=== PATIENT | female | born 1945 | race African-American/Black ===

== ENCOUNTER 2020-11-07 16:52 | Inpatient (IN) | payer MEDICARE ==
[~2020-11-07] VITALS: Ht 152.4 cm; Wt 49.4 kg
--- NOTE | 2020-11-07 17:02 | PHYS DOC ---
General Adult EDM: Chief Complaint: AMS HPI: HPI: Possibly 89-year-old female presents via EMS after trying to get into a daycare center and then sitting down in someone's car. The patient seems to know her name, but does not remember her birthday. She does not seem to be aware of much else. She knows that she has children but does not remmember their names. She denies any pain. She has no complaints. No further history is available. (RYLAN DAVIS DO) Review of Systems: Review of Systems: Constitutional: Denies fever or chills Eyes: Denies change in visual acuity HENT: Denies nasal congestion or sore throat Respiratory: Denies cough or shortness of breath Cardiovascular: Denies chest pain or edema GI: Denies abdominal pain, nausea, vomiting, bloody stools or diarrhea Musculoskeletal: Denies back pain or joint pain Integument: Denies rash Neurologic: Denies headache, focal weakness or sensory changes Psychiatric: Dementia (RYLAN DAVIS DO) Physical Exam: PE: Constitutional: Well developed, well nourished, no acute distress, non-toxic appearance. [] HENT: Normocephalic, atraumatic, bilateral external ears normal, oropharynx moist, no oral exudates, nose normal. [] Eyes: PERRLA, EOMI, conjunctiva normal, no discharge. [] Neck: Normal range of motion, no tenderness, supple, no stridor. [] Cardiovascular:Heart rate 130, regular rhythm, no murmur [] Lungs & Thorax: Bilateral breath sounds clear to auscultation [] Abdomen: Bowel sounds normal, soft, no tenderness, no masses, no pulsatile masses. [] Skin: Warm, dry, no erythema, no rash. [] Back: No tenderness, no CVA tenderness. [] Extremities: No tenderness, no cyanosis, no clubbing, ROM intact, no edema. [] Neurologic: Confused, alert to self only, normal motor function, normal sensory function, no focal deficits noted. [] Psychologic: Affect normal. [] (RYLAN DAVIS DO) EKG: EKG: Sinus rhythm, rate 96, normal axis, no ST elevation or depression. [] (RYLAN DAVIS DO) Radiology/Procedures: Radiology/Procedures: [] Impressions: XR CHEST 1V History: Reason: AMS / Spl. Instructions: / History: Comparison: None. Findings: No consolidation or pleural effusion. Normal heart size. No pneumothorax. Impression: 1. No acute cardiopulmonary process. Electronically signed by: Gregory Valiente DO (11/07/2020 5:32 PM) AILEENJOSEFA DICTATED AND SIGNED BY: GREGORY VALIENTE DO DATE: 11/07/201731 CC: RYLAN DAVIS DO ~MTH0 0 (RYLAN DAVIS DO) Radiology/Procedures: [address] [address] IMAGING REPORT Signed PATIENT: EDOUARD DOBBINS ACCOUNT: [id number] : 02/12/1931 LOCATION: ER AGE: 89 SEX: F EXAM STATUS: PRE ER ORD. PHYSICIAN: RYLAN DAVIS DO REASON: AMS PROCEDURE: CHEST AP ONLY XR CHEST 1V History: Reason: AMS / Spl. Instructions: / History: Comparison: None. Findings: No consolidation or pleural effusion. Normal heart size. No pneumothorax. Impression: 1. No acute cardiopulmonary process. Electronically signed by: Gregory Valiente DO (11/07/2020 5:32 PM) AILEENJOSEFA DICTATED AND SIGNED BY: GREGORY VALIENTE DO DATE: 11/07/201731 CC: RYLAN DAVIS DO ~MTH0 (SHARON CAMARGO MD) Heart Score: C/O Chest Pain: N/A Risk Factors: Risk Factors: DM, Current or recent (<one month) smoker, HTN, HLP, family history of CAD, obesity. Risk Scores: Score 0 - 3: 2.5% MACE over next 6 weeks - Discharge Home Score 4 - 6: 20.3% MACE over next 6 weeks - Admit for Clinical Observation Score 7 - 10: 72.7% MACE over next 6 weeks - Early Invasive Strategies (RYLAN DAVIS DO) Course & Med Decision Making: Course & Med Decision Making Pertinent Labs and Imaging studies reviewed. (See chart for details) The patient initially had a heart rate greater than 110. We are giving her a liter normal saline. EKG heart rate 96. No other significant acute findings. Her chest x-ray is negative for acute findings. The rest of the patient's work- up is pending. I am still not certain who the patient is. I am signing the patient out to Dr. Camargo at 1800. [] (RYLAN DAVIS DO) Course & Med Decision Making Police arrived and took pictures of pt. for posting on new out lets in attempt to identify patient. No recent police reports of missing persons as yet. Mrs. Ayala who works with local office of [employer] does not recognize patient. Nursing shift lab technician's do not recall this patient. The patient ate dinner and slept through most of the night. As of shift change ago 600 hours no one has come forward to report her missing. Pt. remains in no distress. Appears pt may need to be admitted if no one comes forward after the morning news. Pt. endorsed to at shift change 0600Hrs. (SHARON CAMARGO MD) Course & Med Decision Making Concern for 89-year-old female who was found wandering outside or in a daycare and was sitting in someone else's vehicle. Patient is alert to her name but not place, date, year, month, cannot recall her home address. Placement have notified. Patient has been observed in the emergency department for 14.5 hours with no change in mental status, dementia is highly unlikely. Please investigation still pending with no family contacts. Will admit for further medical management and social work consultation. (KOLE RAMESH DO) Dragon Disclaimer: Dragon Disclaimer: This electronic medical record was generated, in whole or in part, using a voice recognition dictation system. (RYLAN DAVIS DO) Departure Departure: Impression: Primary Impression: AMS (altered mental status) Additional Impression: Confusion Disposition: ADMITTED INPATIENT Admitting Physician: Anthony Cunha (KOLE RAMESH DO) Condition: STABLE RYLAN DAVIS DO Nov 07, 2020 17:01 SHARON CAMARGO MD Nov 08, 2020 01:28 KOLE RAMESH DO Nov 08, 2020 07:21
[2020-11-07] MEDS ORDERED: IV NORMAL SALINE 1,000ML 1,000 ML IV ONE (17:15)
[2020-11-07 17:32] LABS: BASO % 1 % (0-3); EOS # 0.1 x10^3/uL (0.0-0.7); EOS % 1 % (0-3); HEMATOCRIT 40.9 % (36.0-47.0); HEMOGLOBIN 13.6 g/dL (12.0-15.5); LYMPH # 1.3 x10^3/uL (1.0-4.8); LYMPH % 24 % (24-48); MEAN CORPUSCULAR HEMOGLOBIN 29 pg (25-35); MEAN CORPUSCULAR HGB CONC 33 g/dL (31-37); MEAN CORPUSCULAR VOLUME 87 fL (79-100); MONO # 0.4 x10^3/uL (0.0-1.1); MONO % 8 % (0-9); NEUT # 3.6 x10^3uL (1.8-7.7); NEUT % 67 % (31-73); PLATELET COUNT 239 x10^3/uL (140-400); RED BLOOD COUNT 4.69 x10^6/uL (3.50-5.40); RED CELL DISTRIBUTION WIDTH 15.4 % (11.5-14.5); WHITE BLOOD COUNT 5.4 x10^3/uL (4.0-11.0)
--- NOTE | 2020-11-07 17:34 | RAD ---
XR CHEST 1V History: Reason: AMS / Spl. Instructions: / History: Comparison: None. Findings: No consolidation or pleural effusion. Normal heart size. No pneumothorax. Impression: 1. No acute cardiopulmonary process. Electronically signed by: Gregory Valiente DO (11/07/2020 5:32 PM) [facility] [place]
[2020-11-07 17:38] LABS: CALCIUM 9.9 mg/dL (8.5-10.1); GFR 52.3; POTASSIUM 3.8 mmol/L (3.5-5.1)
[2020-11-07 17:45] LABS: ALBUMIN 3.6 g/dL (3.4-5.0); ALBUMIN/GLOBULIN RATIO 0.9 (1.0-1.7); TOTAL BILIRUBIN 0.2 mg/dL (0.2-1.0); TOTAL PROTEIN 7.6 g/dL (6.4-8.2)
--- NOTE | 2020-11-07 17:48 | EKG ---
[address] [address] Test Date: 2020-11-07 Test Time: 17:29:41 Pat Name: EDOUARD DOBBINS Department: Room: Gender: F Customer Account Manager: SEBASTIEN : 1931-02-12 Requested By: RYLAN DAVIS Order Number: [id number] Reading MD: Measurements Intervals [place] Rate: 96 P: 115 MS: 184 QRS: 137 QRSD: 84 T: 95 QT: 352 QTc: 451 Interpretive Statements SINUS RHYTHM ABNORMAL RIGHT AXIS DEVIATION QRS(T) CONTOUR ABNORMALITY CONSISTENT WITH HIGH LATERAL INFARCT PROBABLY OLD ABNORMAL ECG RI6.02 No previous ECG available for comparison
[2020-11-07 22:05] LABS: BILIRUBIN,URINE NEG (NEG); CLARITY,URINE CLEAR; COLOR,URINE YELLOW; GLUCOSE,URINE NEG (NEG)
[2020-11-07 22:06] LABS: BACTERIA,URINE FEW /HPF (0-FEW); NITRITE,URINE NEG (NEG); SQUAMOUS EPITHELIAL CELL,UR FEW /LPF; UROBILINOGEN,URINE 0.2 mg/dL (0.2 mg/dL); WBC,URINE OCC /HPF (0-4)
[2020-11-08 08:04] VITALS: BP 134/74
[2020-11-08 11:27] VITALS: BP 131/89
[2020-11-08 15:13] VITALS: BP 144/91
[2020-11-08 15:36] VITALS: BP 127/76
--- NOTE | 2020-11-08 16:07 | HP ---
ADMIT DATE: 11/08/2020 HISTORY OF PRESENT ILLNESS: The patient is an 89-year-old -[place] female patient who was brought by the EMS after trying to get into a daycare center and then sitting down in someone's car. The patient seems to know her name, but does not remember her birthday. She does not seem to be aware of much less anything else. She knows that she has children, but does not remember their names. She did not offer any complaint of pain. Most of her answers seem to be as a word salad, does not make any sense. Her actual name is not known because she gave multiple different names. PAST MEDICAL HISTORY: Unobtainable. PAST SURGICAL HISTORY: Unobtainable. ALLERGIES: Unable to obtain. MEDICATIONS: Again, unable to obtain. FAMILY HISTORY: Unobtainable. SOCIAL HISTORY: Unobtainable. REVIEW OF SYSTEMS: Unobtainable. PHYSICAL EXAMINATION: GENERAL: The patient, on arrival to the Emergency Room, seemed to be in no apparent respiratory distress, on arrival. She was somewhat pale, but no jaundice, cyanosis or thyromegaly. No jugular venous distention. No lower limb edema. VITAL SIGNS: Her heart rate was 130, blood pressure is 120/80, temperature was 98.8, respiratory rate was 18 and oxygen saturation was 99% on room air. HEAD, EYES, EARS, NOSE, AND THROAT: Normocephalic, atraumatic. NECK: Supple. HEART: Showed normal first and second heart sounds. No gallop, rub or murmur. CHEST: Clear to auscultation. No crepitation or rhonchi. ABDOMEN: Distended, soft, nontender. NEUROLOGIC: She is awake, alert, oriented to self, but not to place or person. There is no obvious lateralizing sign. All her cranial nerves are intact. She moves her extremities without difficulty. She ambulates without assistance or assistive devices. LABORATORY DATA: Her lab work in the Emergency Room showed a white cell count 5400, hemoglobin 13.6, hematocrit 40.9, MCV 87 and platelet count 239,000. Her serum sodium was high at 149, potassium 3.8, chloride 114, bicarbonate 25, anion gap of 10, BUN 32, creatinine 1, estimated GFR was 52 mL per minute. Her glucose 173, calcium was 9.9. Total bilirubin, AST, ALT, alkaline phosphatase were normal. Total protein 7.6, albumin was 3.6. Her urinalysis was essentially unremarkable, and her coronavirus by PCR was not detectable. ASSESSMENT AND PLAN: So in summary, this is an -[place] female patient who stated that her first name is Saulo and gave multiple other names, her age is not known. She is oriented to herself only and she is pleasantly confused. Her lab work showed that she has mild hypernatremia. Her blood sugar was elevated slightly to 173, but otherwise apart from dehydration and hypercalcemia, all her other labs are well within normal range. So far, nobody has identified her. Apparently, the police found her in [facility] and posted her picture on the Facebook for somebody to identify her. VINCENT MIKE: Radha TID: [id number]
[2020-11-08 19:02] VITALS: BP 147/78
[2020-11-09 06:33] LABS: CALCIUM 8.8 mg/dL (8.5-10.1); CREATININE 0.8 mg/dL (0.6-1.0); GFR 84.8; POTASSIUM 3.8 mmol/L (3.5-5.1)
[2020-11-09 06:41] VITALS: BP 136/82
--- NOTE | 2020-11-09 09:21 | DS ---
DATE OF DISCHARGE: 11/09/2020 ATTENDING PHYSICIAN: Dr. Cunha. FINAL DISCHARGE DIAGNOSES: 1. Altered mentation. 2. Acute delirium. 3. Profound underlying dementia. HISTORY AND PHYSICAL: This is a social issue with a 75-year-old female who has no idea who she was. She was found wandering at the local [facility]. Police Department was called, brought into the ED. Workup was fairly unremarkable. As it turned out, she is cared for by son-in-law and daughter at home. The daughter went on a business trip and son-in-law who was not there when she ended up escaping from the house and was found wandering in town. Luckily, the weather was warm. She was picked up by police. She was brought into the ED. PHYSICAL EXAMINATION: Please see the dictated note. PERTINENT LABORATORY AND X-RAY STUDIES: Admission hemoglobin was 13.6 g/dL with a white count of 5400. Her electrolytes within normal range. Sodium 143 mEq, potassium 3.8 mEq, creatinine 0.8. Cardiac enzymes negative for coronary ischemia. The chest x-ray was nondiagnostic. COURSE IN THE HOSPITAL: The patient was admitted for social issues. We were able to contact her son-in-law who gave her name and correct date of . Initially, she had been Marisa Shannon. Arrangements were then the next day. Her vital signs were stable. She remains profoundly confused. He is able to come pick her up and take her home with care for her. If he needs a higher level of care, then we explained to him that it is his responsibility to initiate the prison care. The patient was then discharged from our hospital in stable condition. She has no prescription meds and I did not prescribe any at this time. Her prognosis is certainly guarded. SAYDA MIKE: Miguel TID: [id number]
--- NOTE | 2020-11-09 10:03 | PN ---
DATE: 11/09/2020 ATTENDING PHYSICIAN: Dr. Cunha. SUBJECTIVE: The patient is profoundly confused. She can only smile. She does not comprehend my conversation. She is in no acute distress. OBJECTIVE FINDINGS: VITAL SIGNS: Blood pressure this morning is 136/82 mmHg. She is afebrile, pulse is 61 and regular, her oxygen saturation 98% on room air. HEENT: Head is without trauma. Pupils are reactive. Sclerae nonicteric. Oropharynx is clear. NECK: Supple, no bruits. LUNGS: Clear. CARDIOVASCULAR: Shows regular heart tones. ABDOMEN: Soft. EXTREMITIES: Without edema. LABORATORY DATA: Nonfasting blood sugar this morning was 91. Electrolytes within normal range. Troponin was unremarkable. ASSESSMENT: A 75-year-old black female with profound dementia. She was found wandering. Initially, she was a Marisa Shannon, but we found out from her son-in-law that her name is Saulo Del Valle. PLAN: We will try to contact the son-in-law to come pick her up. There are no acute illnesses. Certainly, if he needs a higher level of care, he needs to make arrangements for jail placement. PAYAL/GALI DR: PAYAL/brianna TID: [id number]
== END 2020-11-09 09:35 | disposition home or self-care (01) | DRG 640 ==
LOC: ER 16:52 → 1 SOUTH 11-08 07:21 → EDBD 11-08 07:21
PROVIDERS: ADMIT Internal Medicine; ATTEND Internal Medicine
DX: E86.0 Dehydration (principal); G93.41 Metabolic encephalopathy; E87.0 Hyperosmolality and hypernatremia; E83.52 Hypercalcemia; F03.90 Unspecified dementia, unspecified severity, without behavioral disturbance, psychotic disturbance, mood disturbance, and anxiety; Z91.83 Wandering in diseases classified elsewhere; Z20.822 Contact with and (suspected) exposure to COVID-19
CPT/HCPCS: 36415; 71045; 80048; 80053; 81001; 84484; 85025; 87426; 93005; 96360; U0003; 99285-25; J7030